=== PATIENT | female | born 1955 | race Caucasian/White ===

== ENCOUNTER 2019-06-17 21:54 | Emergency (ER) | payer BC ==
[~2019-06-17] VITALS: Ht 167.6 cm; Wt 80.3 kg
[~2019-06-17 21:54] MED LIST: ASPIRIN EC81 MG PO; CITRUCEL500 MG PO; COQ-10100 MG PO; DOXYCYCLINE HY100 MG PO; METFORMIN HCL500 MG PO; METROCREAM45 GM TOP; METRONIDAZOLE500 MG PO; NORCO 5-325 TA1 EACH PO; OCUVITE LUTEIN1 EAC1 PO; OSTEO BI-FLEX1 EAC2 PO; PENNSAID150 ML TOP; RESTASIS1 DROP OD; SIMVASTATIN20 MG PO; SYNTHROID150 MCG PO; SYNTHROID75 MCG PO; TOPROL XL50 MG PO; VIACTIV SOFT C1 EACH PO; VITAMIN B12-FO1 EACH PO; VITAMIN C500 M1 PO; VITAMIN D31000 UNIT PO; VITAMIN D5000 UNIT PO
--- NOTE | 2019-06-18 06:54 | EKG ---
[facility] [address] [facility] [place], [place] [address] Signed Normal sinus rhythm Nonspecific ST abnormality Abnormal ECG When compared with ECG of 14-MAR-2017 15:25, No significant change was found Confirmed by EMMY GASPAR MD ([id number]) on 06/18/2019 6:54:03 AM Electronically Signed By: EMMY GASPAR MD 06/18/19 0654 PATIENT NAME: JOVANATRACEYMARKIE GONSALEZ Electrocardiogram DATE OF : 57 PHYSICIAN: EMMY GASPAR MD REPORT #: [id number] REPORT IS CONFIDENTIAL AND NOT TO BE RELEASED WITHOUT AUTHORIZATION
== END 2019-06-17 23:19 | disposition home or self-care (01) ==
LOC: ED 21:54
DX: R07.89 Other chest pain (principal); I10 Essential (primary) hypertension; E11.9 Type 2 diabetes mellitus without complications; Z88.0 Allergy status to penicillin; Z88.2 Allergy status to sulfonamides; Z88.1 Allergy status to other antibiotic agents; Z88.8 Allergy status to other drugs, medicaments and biological substances; Z79.899 Other long term (current) drug therapy; Z79.82 Long term (current) use of aspirin; Z79.84 Long term (current) use of oral hypoglycemic drugs
CPT/HCPCS: 71045; 80053; 83735; 84484; 85025; 93005; 93010; 99285-25

== ENCOUNTER 2019-10-08 06:39 | Day surgery (SDC) | payer BC ==
[~2019-10-08] VITALS: Ht 167.6 cm; Wt 92.5 kg
[~2019-10-08 06:39] MED LIST changes: +CITRUCEL479 GM PO; +OMEPRAZOLE20 MG PO; +VITAMIN B-12250 MCG; +ZOCOR40 MG PO
[2019-10-08] MEDS ORDERED: CLARITIN10 M2 PO (07:05)
--- NOTE | 2019-10-08 08:57 | NUR ---
[facility] IN PACU SLEEPY WITH NO C/O'S. ABD FIRM AND PASSING FLATUS. 0855 AWAKE AND TALKING TO STAFF.
--- NOTE | 2019-10-08 10:11 | OR ---
[facility] [address] [place], [place] [address] Signed DATE OF OPERATION: 10/08/2019 SURGEON: Luis Rodriguez MD PREOPERATIVE DIAGNOSES: 1. Longstanding gastroesophageal reflux disease with upper abdominal pain; history of cholecystectomy. 2. History of recurrent diverticulitis. POSTOPERATIVE DIAGNOSES: 1. No evidence of esophagitis; antral gastritis. CLOtest negative. 2. Extensive diverticulosis and small adenomatous polyp of rectum (excised). PROCEDURE: 1. Esophagogastroduodenoscopy with biopsy. 2. Total colonoscopy to cecum with cold morcellation excision of rectal polyp. ANESTHESIA: Intravenous sedation, fentanyl 175 mcg and Versed 9 mg (total) INDICATIONS: This 64-year-old white woman is well known to me from the past and is a patient of FABIO Magallon. She has a longstanding history of gastroesophageal reflux and she takes omeprazole for that. She has had increasing upper abdominal pain in recent times. Additionally, she has had recurrent bouts of diverticulitis as confirmed on CT scan. She has no blood per rectum currently. She has no family history of colon cancer. She is admitted at this time to undergo upper endoscopy and colonoscopy. She understands the risks of bleeding, infection, and perforation. FINDINGS: Upper endoscopy showed a normal-appearing esophagus. The flap valve was somewhat effaced, but not bad and there was no sign of large hiatal hernia proper. She did have pre-pyloric antral gastritis, but no sign of ulceration. CLOtest was negative. The duodenum was normal. On colonoscopy, the prep was adequate. Complete colonoscopy was undertaken to the cecum without question. She had extensive diverticular changes throughout the colon including the right side. She had a small adenomatous polyp at 10 cm, which was excised completely. Electronically Signed By: LUIS RODRIGUEZ MD 10/08/19 1011 PATIENT NAME: TRACEY WHALEY OPERATIVE REPORT DATE OF : 57 REPORT #: [id number] PHYSICIAN: LUIS RODRIGUEZ MD PCP: ANNA WARREN PAC REPORT IS CONFIDENTIAL AND NOT TO BE RELEASED WITHOUT AUTHORIZATION [facility] [address] [place], [place] [address] Signed DESCRIPTION OF PROCEDURE: The patient was brought to the endoscopy suite and given topical lidocaine hypopharyngeal anesthesia and in the lateral decubitus position, given intravenous sedation to the point of slurred speech and nystagmus. Preoperative antibiotic Ancef was given based on prior joint replacement history. A bite block was placed. An Olympus video upper endoscope was passed in the hypopharynx, the vocal cords appeared normal. The scope was advanced to the esophagus without problem throughout its length it was normal. The stomach was evaluated showing normal rugal folds and antral motility. The pre-pyloric area had antral gastritis. Photographs were taken. The pylorus was normal. Scope was passed through into the duodenum, which was also normal. Biopsies were taken of the duodenum and the 2nd portion. Withdrawal of scope to the antrum allowed for pre-pyloric biopsies. The scope was withdrawn and retroflexed view showed a slightly effaced flap valve, but no sign of large hiatal hernia. The scope was straightened, withdrawn into the distal esophagus where biopsies were obtained of normal-appearing esophageal mucosa. There was no sign of Campos's or inflammation in the . Midesophageal biopsies were also undertaken. The scope was withdrawn. Plans were then made for colonoscopy. Digital rectal examination was found to be normal. The Olympus video colonoscope was passed in the rectum and immediately noted at 10 cm was an adenomatous appearing polyp, this was excised with cold morcellation technique with multiple biopsies and complete elimination of the lesion. The scope was then advanced into the sigmoid where numerous diverticula were noted. Irrigation was undertaken as necessary and the scope advanced ultimately to the cecum. The ileocecal valve and appendiceal orifice were normal. The scope was withdrawn from that point. Examination showed no sign of abnormality other than the diverticular changes throughout the entire colon. Retroflexed view of the rectum was normal. Scope was removed and the patient was taken to the recovery room in good condition. CONCLUDING DIAGNOSIS: 1. Pre-pyloric antral gastritis. No evidence of H. pylori. 2. Diverticulosis (extensive) with polyp of rectum (excised). PLAN: We will recommend continued use of PPI medication. I would recommend high-fiber diet. Repeat colonoscopy in 10 years. She will see us back in 4 weeks and we will review her pathology reports and other issues related to her gastritis. Luis Rodriguez MD Electronically Signed By: LUIS RODRIGUEZ MD 10/08/19 1011 PATIENT NAME: TRACEY WHALEY OPERATIVE REPORT DATE OF : 57 REPORT #: [id number] PHYSICIAN: LUIS RODRIGUEZ MD PCP: ANNA WARREN [facility] REPORT IS CONFIDENTIAL AND NOT TO BE RELEASED WITHOUT AUTHORIZATION [address] [address] Signed /[facility] /[id number] cc: FABIO Magallon Copies: ~ Electronically Signed By: LUIS RODRIGUEZ MD 10/08/19 1011 PATIENT NAME: TRACEY WHALEY OPERATIVE REPORT DATE OF : 57 REPORT #: [id number] PHYSICIAN: LUIS RODRIGUEZ MD PCP: ANNA WARREN PAC REPORT IS CONFIDENTIAL AND NOT TO BE RELEASED WITHOUT AUTHORIZATION
--- NOTE | 2019-10-09 11:00 | PATH ---
[facility] [address] [facility] [place], [place] [address] Signed SPECIMEN(S): A DUODENUM SPECIMEN(S): B ANTRUM/PYLORUS SPECIMEN(S): C LOWER ESOPHAGUS SPECIMEN(S): D MIDDLE ESOPHAGUS SPECIMEN(S): E COLON POLYP AT 10 CM SPECIMEN SOURCE: A. DUODENUM B. ANTRUM/PYLORUS C. LOWER ESOPHAGUS D. MIDDLE ESOPHAGUS E. COLON POLYP AT 10 CM CLINICAL HISTORY: Diverticulosis, polyp. MICROSCOPIC DESCRIPTION: Histologic sections of all submitted blocks are examined by light microscopy. These findings, together with the gross examination, support the pathologic diagnosis. FINAL PATHOLOGIC DIAGNOSIS: A. Duodenum, biopsy: - Duodenal mucosa with no histopathologic abnormality. - Negative for Helicobacter organisms on HE stain. - Negative for dysplasia or malignancy. B. Stomach, antrum/pylorus, biopsy: - Antral mucosa with no histopathologic abnormality. - Negative for Helicobacter organisms on HE stain. - Negative for dysplasia or malignancy. C. Esophagus, lower, biopsy: - Squamous mucosa with no histopathologic abnormality. - Negative for intestinal metaplasia, dysplasia, or malignancy. D. Esophagus, middle, biopsy: - Squamous mucosa with no histopathologic abnormality. - Negative for intestinal metaplasia, dysplasia, or malignancy. E. Colon, polyp at 10 cm, polypectomy: - Tubular adenoma. - Negative for high-grade dysplasia or malignancy. NAL:cml:[id number] GROSS DESCRIPTION: PATIENT NAME: JOVANATRACEYMARKIE GONSALEZ PATHOLOGY DATE OF : 57 REPORT #: [id number] PHYSICIAN: ALEXI JACOME PCP: ANNA WARREN PAC REPORT IS CONFIDENTIAL AND NOT TO BE RELEASED WITHOUT AUTHORIZATION [facility] [address] [place], [place] [address] Signed Five specimens are received in five containers, labeled "CP." A. The specimen, labeled "CP, 1," and designated on the requisition "duodenum," is received in formalin and consists of two villanueva soft tissue fragment(s) that measure 0.3 cm in greatest dimension. The specimen is entirely submitted in cassette (A1). B. The specimen, labeled "CP, 2," and designated on the requisition "antrum/pylorus," is received in formalin and consists of one villanueva soft tissue fragment(s) that measure 0.3 cm in greatest dimension. The specimen is entirely submitted in cassette (B1). C. The specimen, labeled "CP, 3," and designated on the requisition "lower esophagus," is received in formalin and consists of one villanueva soft tissue fragment(s) that measure 0.3 cm in greatest dimension. The specimen is entirely submitted in cassette (C1). D. The specimen, labeled "CP, 4 " and designated on the requisition "middle esophagus," is received in formalin and consists of two thin villanueva soft tissue fragment(s) that measure 0.5 cm in greatest dimension. The specimen is entirely submitted in cassette (D1). E. The specimen, labeled "CP, 5," and designated on the requisition "colon polyp at 10 cm," is received in formalin and consists of three villanueva soft tissue polypoid fragment(s) that measure 0.3 cm in greatest dimension. The specimen is entirely submitted in cassette (E1). AT (under the direct supervision of a pathologist) The Gross Description was prepared using a voice recognition system. The report was reviewed for accuracy; however, sound-alike word errors, addition and/or deletions may occur. If there is any question about this report, please contact Client Services. PERFORMING LABORATORY: The technical component was performed by [facility], [address] [place] [id number] ([employer]: Yasmine Garcia MD; CLIA# [id number]). Professional interpretation was performed by [facility], [address] [place], [place] [address] (CLIA# [id number]). Diagnostician: Temitope Parkinson MD Pathologist Electronically Signed 10/09/2019 Copies: PATIENT NAME: TRACEY WHALEY PATHOLOGY DATE OF : 57 REPORT #: [id number] PHYSICIAN: ALEXI JACOME PCP: ANNA WARREN PAC REPORT IS CONFIDENTIAL AND NOT TO BE RELEASED WITHOUT AUTHORIZATION [facility] [address] [facility] [place], [place] [address] Signed ~ PATIENT NAME: TRACEY WHALEY PATHOLOGY DATE OF : 57 REPORT #: [id number] PHYSICIAN: ALEXI JACOME PCP: ANNA WARREN PAC REPORT IS CONFIDENTIAL AND NOT TO BE RELEASED WITHOUT AUTHORIZATION
== END 2019-10-08 09:50 | disposition home or self-care (01) ==
LOC: OPS 06:39 → DS 06:39 → OPS 06:45
PROVIDERS: Surgery
PROC: 0DB28ZX Excision of Middle Esophagus, Via Natural or Artificial Opening Endoscopic, Diagnostic (ICD-10-PCS; 2019-10-08)
PROC: 0DB38ZX Excision of Lower Esophagus, Via Natural or Artificial Opening Endoscopic, Diagnostic (ICD-10-PCS; 2019-10-08)
PROC: 0DBP8ZX Excision of Rectum, Via Natural or Artificial Opening Endoscopic, Diagnostic (ICD-10-PCS; 2019-10-08)
PROC: 0DB98ZX Excision of Duodenum, Via Natural or Artificial Opening Endoscopic, Diagnostic (ICD-10-PCS; principal; 2019-10-08 06:45)
PROC: 0DB78ZX Excision of Stomach, Pylorus, Via Natural or Artificial Opening Endoscopic, Diagnostic (ICD-10-PCS; 2019-10-08 06:45)
DX: Z12.11 Encounter for screening for malignant neoplasm of colon (principal); D12.8 Benign neoplasm of rectum; K57.30 Diverticulosis of large intestine without perforation or abscess without bleeding; K21.9 Gastro-esophageal reflux disease without esophagitis; I10 Essential (primary) hypertension; E11.9 Type 2 diabetes mellitus without complications; E03.9 Hypothyroidism, unspecified; Z88.8 Allergy status to other drugs, medicaments and biological substances; Z88.1 Allergy status to other antibiotic agents; Z88.0 Allergy status to penicillin; Z88.2 Allergy status to sulfonamides; Z79.899 Other long term (current) drug therapy; Z79.82 Long term (current) use of aspirin; Z79.84 Long term (current) use of oral hypoglycemic drugs
CPT/HCPCS: 99153; G0500; J0690; J2250; J3010

== ENCOUNTER 2021-10-15 09:56 | Emergency (ER) | payer MEDICARE, OTHER ==
[~2021-10-15] VITALS: Ht 167.6 cm; Wt 75.8 kg
[~2021-10-15 09:56] MED LIST changes: +CLARITIN10 M2 PO
[2021-10-15] MEDS ORDERED: FLOVENT DISKUS50 MCG INH (10:28)
[2021-10-15] MEDS ORDERED: PREDNISONE20 MG PO (10:29)
== END 2021-10-15 13:05 | disposition home or self-care (01) ==
LOC: ED 09:56
DX: U07.1 COVID-19 (principal); I10 Essential (primary) hypertension; E11.9 Type 2 diabetes mellitus without complications; Z79.899 Other long term (current) drug therapy; Z79.84 Long term (current) use of oral hypoglycemic drugs; Z79.52 Long term (current) use of systemic steroids; Z88.1 Allergy status to other antibiotic agents; Z88.0 Allergy status to penicillin; Z88.2 Allergy status to sulfonamides; Z88.8 Allergy status to other drugs, medicaments and biological substances
CPT/HCPCS: 87502; 96374; 99283-25; C9803; U0003

== ENCOUNTER 2023-04-20 05:13 | Emergency (ER) | payer MEDICARE, OTHER ==
[~2023-04-20] VITALS: Ht 167.6 cm; Wt 75.8 kg
[~2023-04-20 05:13] MED LIST changes: +FLOVENT DISKUS50 MCG INH; +PREDNISONE20 MG PO
[2023-04-20 06:47] VITALS: BP 118/78
== END 2023-04-20 06:48 | disposition home or self-care (01) ==
LOC: ED 05:13
DX: M79.89 Other specified soft tissue disorders (principal); I10 Essential (primary) hypertension; E11.9 Type 2 diabetes mellitus without complications; Q63.1 Lobulated, fused and horseshoe kidney; Z88.0 Allergy status to penicillin; Z88.1 Allergy status to other antibiotic agents; Z88.2 Allergy status to sulfonamides; Z88.8 Allergy status to other drugs, medicaments and biological substances; Z79.84 Long term (current) use of oral hypoglycemic drugs; Z79.890 Hormone replacement therapy; Z79.899 Other long term (current) drug therapy; Z79.51 Long term (current) use of inhaled steroids; Z79.52 Long term (current) use of systemic steroids
CPT/HCPCS: 73590; 99283-25

== ENCOUNTER 2024-10-19 17:50 | Emergency (ER) | payer MEDICARE, OTHER ==
[~2024-10-19] VITALS: Ht 167.6 cm; Wt 75.0 kg
[2024-10-19] MEDS ORDERED: IBUPROFEN 800 MG TAB PO ONE (20:00)
[2024-10-19 20:30] VITALS: BP 136/70
== END 2024-10-19 20:30 | disposition home or self-care (01) ==
LOC: ED 17:50
DX: S70.02XA Contusion of left hip, initial encounter (principal); S70.12XA Contusion of left thigh, initial encounter; I10 Essential (primary) hypertension; E11.9 Type 2 diabetes mellitus without complications; M19.90 Unspecified osteoarthritis, unspecified site; W17.89XA Other fall from one level to another, initial encounter; Z79.51 Long term (current) use of inhaled steroids; Z79.84 Long term (current) use of oral hypoglycemic drugs; Z79.899 Other long term (current) drug therapy; Z88.0 Allergy status to penicillin; Z88.2 Allergy status to sulfonamides; Z88.1 Allergy status to other antibiotic agents; Z88.8 Allergy status to other drugs, medicaments and biological substances
CPT/HCPCS: 73502; 80053; 85025; 99283; A9270; G0480